=== PATIENT | male | born 1960 | race Caucasian/White ===

== ENCOUNTER 2020-08-24 13:56 | Inpatient (IN) ==
[2020-08-24] MEDS: fentaNYL citrate 100 MCG/2 ML VIAL IV PRN ×2 (14:13→16:09)
--- NOTE | 2020-08-24 15:14 | XRay Report ---
XR tibia fibula RT 2V HISTORY: 60 years-old Male fall acute right lower leg pain status post fall COMPARISON: None TECHNIQUE: 2 views of the right tibia and fibula FINDINGS: There is an acute oblique fracture of the distal diaphyseal fibula which demonstrates 8 mm lateral di splacement. Acute oblique fracture of the distal diaphyseal tibia with posterior displacement of 1.3 cm and slight apex volar angulation. Moderate soft tissue swelling of the lower leg and ankle. Mild o steoarthritis of the knee and ankle. Moderate patellofemoral osteoarthritis. IMPRESSION: Acute displaced fractures of the distal diaphyseal aspects of the tibia and fibula with m oderate soft tissue swelling. ACT 112: Negative or not required by law. The above report was generated using voice recognition software. It may contain grammatical, syntax o r spelling errors. Electronically signed by: Camron Delaney M.D. 08/24/2020 3:13 PM
--- NOTE | 2020-08-24 15:26 | Emergency Department Note ---
Impression & Plan Closed fracture of right fibula and tibia ED Provider Note NAME: CHING FALK AGE: 60 SEX: M : 1960 ARRIVES VIA: Ambulance INFORMANT: Patient, ED PROVIDER(S): Ching Patino DO CHIEF COMPLAINT: Leg pain HPI: The patient is a 60-year-old male who presented to the emergency department for an evaluation of right lower extremity pain. The patient was ambulating when he tripped and fell. He was wearing high boots. He sustained an injury to the right lower extremity. He was unable to ambulate and 911 was called. The patient arrived at the emergency department via ambulance. The patient received fentanyl prior to arrival. Pain was well controlled prior to arrival. The patient denies having any other injuries. He denies having any knee pain or back pain. He did not strike his head. He did not lose consciousness. The patient states he has pain with any movement of the right lower extremity. He denies having any numbness in the foot. He denies having any recent illnesses or fevers. ROS: See above HPI for pertinent positives & negatives. A total of 10 systems reviewed and were otherwise negative. PAST MEDICAL HISTORY: See Below PAST SURGICAL HISTORY: See Below FAMILY HISTORY: See Below SOCIAL HISTORY: See Below HOME MEDICATIONS: See Below ALLERGIES: See Below VITALS: See Below PHYSICAL EXAMINATION: GENERAL: The patient is awake and alert. He is very anxious appearing and appears to be in significant pain. EYES: The conjunctivae are clear. The pupils are round and reactive. EARS, NOSE, MOUTH AND THROAT: The nose is without any evidence of any deformity. NECK: The neck is nontender and supple. RESPIRATORY: Normal respiratory effort is noted there is no evidence of wheezing rhonchi or rales CARDIOVASCULAR: Regular rate and rhythm noted there no murmurs rubs or gallops normal S1 normal S2. GASTROINTESTINAL: The abdomen is soft. Abdomen is nontender. BACK: No midline tenderness or or step-off noted range of motion in flexion extension as well as rotation no signs of muscle spasm noted MUSCULOSKELETAL/EXTREMITIES: There is significant swelling and tenderness over the midportion of the right leg. There is no tenderness over the right foot of the right knee. Pulses are symmetric in both feet. SKIN: There is no obvious evidence of any rash. There are no petechiae, pallor or cyanosis noted. NEUROLOGIC: Patient is awake alert and oriented x3. MEDICAL DECISION MAKING: The patient is a 60-year-old male who presented to the emergency department for an evaluation after fall. The patient was treated with IV pain medication by the computer methods analyst prior to arrival. The patient was found to have a tib-fib f racture on x-ray. I discussed the patient's condition with the orthopedic physician who is covering for the patient's primary group. They did agree to evaluate the patient in the emergency department. They felt he was a candidate for surgical intervention. Further laboratory and radiographic studies were obtained for medical clearance. The patient was further treated with IV pain medication in the emergency department. On subsequent reevaluation he was feeling much better. Triage Nursing notes reviewed. Prior medical records reviewed Vital Signs: reviewed and remarkable for elevated blood pressure. Differential diagnosis: Fracture, subluxation, dislocation, contusion, ligamentous injury, ne urovascular, compartment syndrome, rhabdomyolysis, as well as other pathologies. ER treatment provided: See below Diagnostics interpreted by me: ECG: EKG was obtained in the emergency department. My interpretation is normal sinus rhythm at 64 bpm. There was no ectopy. Nonspecific T wave abnormalities were noted in the inferior leads. This was compared to a tracing from July 292019. No significant changes were noted. Cardiac Monitoring: An order was placed for continuous cardiac monitoring. The monitor shows a rate of 75 bpm with sinus rhythm. Laboratory studies: As stated above and show below. Imaging studies: See below Consultation(s): 1640: I discussed this case with Dr. Gong who is on-call for the patient's requested orthopedic group. He will evaluate the patient in the emergency department. He does request a CT of the lower extremity. Past Med/Surg History Medical History (Updated 08/24/20 @ 19:22 by Ching Patino DO) Hypertension Osteoarthritis Surgical History Hx of colonoscopy Hx of oral surgery removed extra teeth and did jaw surgery as teenager Family History Other Diabetes Social History (Updated 08/24/20 @ 17:56 by Mary Yu PA-C) Smoking Status: Never smoker Tobacco Type: Cigars and Smokeless Tobacco (Dip or Chew) Cigarettes Per Day: rare; Second Hand Exposure: No; Hx Alcohol Use: Yes Alcohol type: beer Hx Substance Use: No Preferred Language: Vietnamese Communication Ability: Effective Lean Consultant Required: No Beliefs That Will Affect Care: None Current Living Situation: Spouse Feels Safe at Home: Yes Assistive Devices: Glasses Allergies Allergies Allergy/AdvReac Type Severity Reaction Status Date / Time aspirin Allergy Unknown swelling Verified 08/24/20 14:44 Penicillins Allergy Unknown UNKNOWN Verified 08/24/20 14:44 Home Meds Home Medications Medication Instructions Recorded Confirmed losartan 100 1 tab PO QAM 07/28/19 08/24/20 mg-hydrochlorothiazide 25 mg tablet naproxen sodium 220 mg capsule 220 mg PO BID PRN 07/28/19 08/24/20 Results & Data (ED) Vital Signs Vital Signs - 24 hr 08/24/20 14:01 08/24/20 14:05 08/24/20 14:09 Temperature 36.9 C Temperature Source Oral Pulse Rate 69 69 63 Pulse Rate [Right Finger] Pulse Rate from SpO2 Sensor 61 64 Respiratory Rate 16 18 16 Respiratory Effort / Characteristics Respiratory Depth Respiratory Pattern Blood Pressure 183/84 H 183/84 H Blood Pressure [Right Arm] Blood Pressure Mean 117 117 Blood Pressure Mean [Right Arm] Blood Pressure Position [Right Arm] Pulse Oximetry 95 99 97 Oxygen Delivery Method Sepsis Recent Fever Within 48 Hours No Sepsis New/Unexplained Change in Mental Status No Sepsis Action Taken by Nursing No Action Required 08/24/20 16:00 08/24/20 17:05 08/24/20 18:11 Temperature Temperature Source Pulse Rate Pulse Rate [Right Finger] 67 73 Pulse Rate from SpO2 Sensor Respiratory Rate 18 18 Respiratory Effort / Characteristics Non-Labored Spontaneous Non-Labored Spontaneous Respiratory Depth Normal Normal Respiratory Pattern Regular Blood Pressure Blood Pressure [Right Arm] 183/84 H 142/81 H Blood Pressure Mean Blood Pressure Mean [Right Arm] 117 101 Blood Pressure Position [Right Arm] Sitting Lying Pulse Oximetry 94 96 94 Oxygen Delivery Method Room Air Room Air Room Air Sepsis Recent Fever Within 48 Hours Sepsis New/Unexplained Change in Mental Status Sepsis Action Taken by Group Home Medications Current Medication List: was personally reviewed by me Laboratory Data Attestation: I reviewed the patient's lab results. Result diagrams: 08/24/20 17:05 08/24/20 17:05 Lab Results 02/03/21 02/03/21 02/03/21 Range/Units 17:05 17:05 17:33 WBC 11.71 H (4.8-10.8) K/uL RBC 4.75 (4.7-6.1) M/uL Hgb 15.2 (14.0-18.0) g/dL Hct 43.7 (42-52) % MCV 92.0 (80-100) fL MCH 32.0 (25-34) pg MCHC 34.8 (32-36) g/dL RDW Std Deviation 42.3 (36.4-46.3) fL RDW Coeff of Ayo 12.7 (11.5-14.5) % Plt Count 198 (130-400) K/uL MPV 9.7 (7.4-10.4) fL Immature Gran % (Auto) 0.2 % Neut % (Auto) 79.9 % Lymph % (Auto) 10.4 % [place] % (Auto) 9.1 % Eos % (Auto) 0.3 % Baso % (Auto) 0.1 % Neut # (Auto) 9.37 H (1.4-6.5) K/uL Lymph # (Auto) 1.22 (1.2-3.4) K/uL [place] # (Auto) 1.06 H (0.11-0.59) K/uL Eos # (Auto) 0.03 (0-0.5) K/uL Baso # (Auto) 0.01 (0-0.2) K/uL Immature Gran # (Auto) 0.02 (0.00-0.02) K/uL Sodium 140 (136-145) mmol/L Potassium (3.5-5.1) mmol/L Chloride 108 H (98-107) mmol/L Carbon Dioxide 26 (21-32) mmol/L Anion Gap 6.0 (3-11) BUN 21 H (7-18) mg/dl Creatinine 1.05 (0.6-1.4) mg/dl Est Cr Clr Drug Dosing 102.7 ml/min Est GFR ( Amer) 87.7 Est GFR (Non-Af Amer) 75.7 BUN/Creatinine Ratio 19.8 (10-20) Glucose 95 (70-99) mg/dl Calcium 8.8 (8.5-10.1) mg/dl Total Bilirubin 0.6 (0.2-1) mg/dl AST (15-37) U/L ALT 31 (12-78) U/L Alkaline Phosphatase 79 (45-117) U/L Troponin I < 0.015 (0-0.045) ng/ml Total Protein 7.0 (6.4-8.2) gm/dl Albumin 3.8 (3.4-5.0) gm/dl Globulin 3.2 (2.5-4.0) gm/dl Albumin/Globulin Ratio 1.2 (0.9-2) Lipase 90 (73-393) U/L COVID-19 Eval [facility] SARS-CoV-2, RNA, NAAT (NEGATIVE) 08/24/20 Range/Units 17:33 WBC (4.8-10.8) K/uL RBC (4.7-6.1) M/uL Hgb (14.0-18.0) g/dL Hct (42-52) % MCV (80-100) fL MCH (25-34) pg MCHC (32-36) g/dL RDW Std Deviation (36.4-46.3) fL RDW Coeff of Ayo (11.5-14.5) % Plt Count (130-400) K/uL MPV (7.4-10.4) fL Immature Gran % (Auto) % Neut % (Auto) % Lymph % (Auto) % [place] % (Auto) % Eos % (Auto) % Baso % (Auto) % Neut # (Auto) (1.4-6.5) K/uL Lymph # (Auto) (1.2-3.4) K/uL [place] # (Auto) (0.11-0.59) K/uL Eos # (Auto) (0-0.5) K/uL Baso # (Auto) (0-0.2) K/uL Immature Gran # (Auto) (0.00-0.02) K/uL Sodium (136-145) mmol/L Potassium (3.5-5.1) mmol/L Chloride (98-107) mmol/L Carbon Dioxide (21-32) mmol/L Anion Gap (3-11) BUN (7-18) mg/dl Creatinine (0.6-1.4) mg/dl Est Cr Clr Drug Dosing ml/min Est GFR ( Amer) Est GFR (Non-Af Amer) BUN/Creatinine Ratio (10-20) Glucose (70-99) mg/dl Calcium (8.5-10.1) mg/dl Total Bilirubin (0.2-1) mg/dl AST (15-37) U/L ALT (12-78) U/L Alkaline Phosphatase (45-117) U/L Troponin I (0-0.045) ng/ml Total Protein (6.4-8.2) gm/dl Albumin (3.4-5.0) gm/dl Globulin (2.5-4.0) gm/dl Albumin/Globulin Ratio (0.9-2) Lipase (73-393) U/L COVID-19 Eval Order SARS-CoV-2, RNA, NAAT NEGATIVE (NEGATIVE) Administered Medications Fentanyl Citrate (Fentanyl Citrate 100 Mcg/2 Ml Vial) 100 mcg IV Q15M PRN PRN Reason: Pain Stop: 09/07/20 14:00 Last Admin: 08/24/20 16:09 Dose: 100 mcg Documented by: [id number] Admin: 08/24/20 14:13 Dose: 100 mcg Documented by: [id number] Imaging Data Radiologist's Impression: [facility], [phone] CT Scan Report Patient: CHING FALK Date: 08/24/20MR#: [id number]: [address] RDAcct ID:[id number]: Date: 1960[facility] Zip: [place], [place] [address]Nnr: 60Location: EDSex: MRoom/Bed:Att Phy:Diagnosis: LEG INJURY/PAINPri Phy: Yifan Reece Jr, DOService Date: 08/24/20Fa Phy:Interpreting Phy: Jose Carlos Barrera MDAdmit Phy: Ordering Phy: Ching Patino DO cc: ~ CT tib/fib RT wo con CLINICAL HISTORY: fall COMPARISON STUDY: Right tibia and fibula radiographs August 24, 2020. TECHNIQUE: Axial images of the right tibia and fibula were obtained without IV contrast. Sagittal and coronal reconstructions were viewed. Automated exposure control was utilized for the study. A dose lowering technique was utilized adhering to the principles of ALARA. FINDINGS: No proximal right tibial or fibular fracture is identified. There is no ankle mortise widening. Note is made of an acute oblique moderately displaced distal diaphyseal fracture of the right tibia. Fracture is displaced 1.8 cm. In addition, there is an acute mildly displaced distal diaphyseal fracture of the right fibula which is displaced 0.8 cm. No additional acute fractures are present. There is soft tissue swelling. Alignment of the right knee is anatomic. There are no suspicious osseous lesions. IMPRESSION: Acute displaced distal diaphyseal fractures of the right tibia and fibula, as described above. ACT 112: Negative or not required by law. Electronically signed by: Jose Carlos Barrera M.D. 08/24/2020 5:57 PM Dictated: 08/24/201751Transcribed: 08/24/201751 [facility], [phone] XRay Report Patient: NANCIEHUIROWENACHING [facility] Date: 08/24/20MR#: [id number]: [address] RDAcct ID:[id number]: Date: 1960[facility] Zip: [place], [place] [address]Dwp: 60Location: EDSex: MRoom/Bed:Att Phy:Diagnosis: LEG INJURY/PAINPri Phy: Yifan Reece Jr, DOService Date: 08/24/20Fa Phy:Interpreting Phy: Jose Carlos Barrera MDAdmit Phy: Ordering Phy: Ching Patino DO cc: ~ XR chest 1V portable CLINICAL HISTORY: Chest Pain COMPARISON STUDY: Chest radiograph July 29, 2019. FINDINGS: Lung volumes are normal. Lungs are clear. There is no pneumothorax or pleural effusion. Cardiac size is stable. Mediastinal contours are normal. There is no evidence for pulmonary edema. IMPRESSION: No acute cardiopulmonary findings. ACT 112: Negative or not required by law. Electronically signed by: Jose Carlos Barrera M.D. 08/24/2020 5:20 PM Dictated: 08/24/201718Transcribed: 08/24/201718 Patient: DILEEPCHING [facility] Date: 08/24/20MR#: [id number]: [address] RDAcct ID:[id number]: Date: 1960[facility] Zip: [place], [place] [address]Jee: 60Location: EDSex: MRoom/Bed:Att Phy:Diagnosis: LEG INJURY/PAINPri Phy: Yifan Reece Jr, DOService Date: 08/24/20Fam Phy:Interpreting Phy: Arnel DelaneyAdmit Phy: Ordering Phy: Ching Patino DO cc: ~ XR tibia fibula RT 2V HISTORY: 60 years-old Male fall acute right lower leg pain status post fall COMPARISON: None TECHNIQUE: 2 views of the right tibia and fibula FINDINGS: There is an acute oblique fracture of the distal diaphyseal fibula which demonstrates 8 mm lateral displacement. Acute oblique fracture of the distal diaphyseal tibia with posterior displacement of 1.3 cm and slight apex volar angulation. Moderate soft tissue swelling of the lower leg and ankle. Mild osteoarthritis of the knee and ankle. Moderate patellofemoral osteoarthritis. IMPRESSION: Acute displaced fractures of the distal diaphyseal aspects of the tibia and fibula with moderate soft tissue swelling. ACT 112: Negative or not required by law. The above report was generated using voice recognition software. It may contain grammatical, syntax or spelling errors. Electronically signed by: Camron Delaney M.D. 08/24/2020 3:13 PM Dictated: 08/24/201510Transcribed: 08/24/201510 Discharge Plan Visit Data Chief Complaint: Leg Injury/Pain ED Provider: Ching Patino Discharge Problem: Closed fracture of right fibula and tibia Forms Stand Alone Forms: [employer] Prescriptions Prescriptions: No Action losartan-hydrochlorothiazide 100-25 mg tablet 1 tab PO QAM RF: 0 naproxen sodium [Aleve] 220 mg capsule 220 mg PO BID PRN (Reason: Pain) RF: 0 Referrals Referrals: Yifan Reece Jr, DO [Primary Care Provider] - Discharge Problem: Closed fracture of right fibula and tibia Qualifiers: Encounter type: initial encounter Qualified Code(s): S82.201A - Unspecified fracture of shaft of right tibia, initial encounter for closed fracture
[2020-08-24 17:14] LABS: Basophils # (auto) 0.01 K/uL (0-0.2); Basophils % (auto) 0.1 %; Eosinophils # (auto) 0.03 K/uL (0-0.5); Eosinophils % (auto) 0.3 %; Hematocrit (blood only) 43.7 % (42-52); Hemoglobin 15.2 g/dL (14.0-18.0); Immature Granulocytes # (auto) 0.02 K/uL (0.00-0.02); Immature Granulocytes % (auto) 0.2 %; Lymphocytes # (auto) 1.22 K/uL (1.2-3.4); Lymphocytes % (auto) 10.4 %; Mean Corpuscular Hgb Conc 34.8 g/dL (32-36); Mean Platelet Volume 9.7 fL (7.4-10.4); Monocytes # (auto) 1.06 K/uL (0.11-0.59); Monocytes % (auto) 9.1 %; Neutrophils # (auto) 9.37 K/uL (1.4-6.5); Neutrophils % (auto) 79.9 %; Platelet Count 198 K/uL (130-400); RDW Coefficient of Variation 12.7 % (11.5-14.5); RDW Standard Deviation 42.3 fL (36.4-46.3); Red Blood Count 4.75 M/uL (4.7-6.1); White Blood Count 11.71 K/uL (4.8-10.8)
--- NOTE | 2020-08-24 17:21 | XRay Report ---
XR chest 1V portable CLINICAL HISTORY: Chest Pain COMPARISON STUDY: Chest radiograph July 29, 2019. FINDINGS: Lung volumes are normal. Lungs are clear. There is no pneumothorax or pleural effusion. Car diac size is stable. Mediastinal contours are normal. There is no evidence for pulmonary edema. IMPRESSION: No acute cardiopulmonary findings. ACT 112: Negative or not required by law. Electronically signed by: Jose Carlos Barrera M.D. 08/24/2020 5:20 PM
[2020-08-24 17:40] LABS: Alanine Aminotransferase 31 U/L (12-78); Albumin Globulin Ratio 1.2 (0.9-2); Albumin Level 3.8 gm/dl (3.4-5.0); Alkaline Phosphatase 79 U/L (45-117); BUN Creatinine Ratio 19.8 (10-20); Bilirubin,Total 0.6 mg/dl (0.2-1); Blood Urea Nitrogen 21 mg/dl (7-18); Calcium 8.8 mg/dl (8.5-10.1); Carbon Dioxide 26 mmol/L (21-32); Chloride 108 mmol/L (98-107); Creatinine Clr Calc Pharmacy 102.7 ml/min; Est GFR (African American) 87.7; Est GFR (Non-African American) 75.7; Globulin 3.2 gm/dl (2.5-4.0); Glucose 95 mg/dl (70-99); Lipase 90 U/L (73-393); Sodium 140 mmol/L (136-145); Troponin I < 0.015 ng/ml (0-0.045)
--- NOTE | 2020-08-24 17:58 | CT Scan Report ---
CT tib/fib RT wo con CLINICAL HISTORY: fall COMPARISON STUDY: Right tibia and fibula radiographs August 24, 2020. TECHNIQUE: Axial images of the right tibia and fibula were obtained without IV contrast. Sagittal and coronal reconstructions were viewed. Automated exposure control was utilized for the study. A dose lowering technique was utilized adhering to the principles of ALARA. FINDINGS: No proximal right tibial or fibular fracture is identified. There is no ankle mortise widen ing. Note is made of an acute oblique moderately displaced distal diaphyseal fracture of the right ti hemant. Fracture is displaced 1.8 cm. In addition, there is an acute mildly displaced distal diaphyseal fracture of the right fibula which is displaced 0.8 cm. No additional acute fractures are present. Th ere is soft tissue swelling. Alignment of the right knee is anatomic. There are no suspicious osseous lesions. IMPRESSION: Acute displaced distal diaphyseal fractures of the right tibia and fibula, as described above. ACT 112: Negative or not required by law. Electronically signed by: Jose Carlos Barrera M.D. 08/24/2020 5:57 PM
--- NOTE | 2020-08-24 18:03 | History & Physical Report ---
Date of Service August 24, 2020 Assessment & Plan (1) Tibia/fibula fracture: Patient has a closed right distal tib-fib fracture. He will be admitted for care under Dr. Suárez service today. Dr. Harding will over take care tomorrow. We will make him n.p.o. after midnight in preparation for surgery tomorrow. He will be given his regular home medications if warranted. He has undergone preoperative CBC, BMP and Covid testing. He is also had an EKG, chest x-ray. CT scan of his right tibia has also been completed. He has been splinted and recommended ice and elevation through the night of his right lower extremity. We will do frequent neurovascular checks to eval for compartment sy ndrome. He needs to be nonweightbearing and bedrest until surgical intervention is decided upon. Patient understands and agrees with the plan. All questions were answered. Informed consent will be obtained by Dr. Harding's office or one of his partners tomorrow. I, Dr. Suárez, saw and examined the patient with my PA and discussed the management with my PA. I reviewed my PAs note and agree with the documented findings and the plan of care I developed. Present on Admission?: Yes History of Present Illness Primary Care Provider: Yifan Reece Jr, DO Patient is a 60 year old male who presented to the ED today with complaints of right leg pain after a fall over a mower blade in his garage. He works as a Repairer And Checker for [employer] He states about a week ago his twisted his leg and ankle, and was limping on it for the past week. After 3-4 days it was feeling better, then he bumped it on an umbrella stand again and developed a "snap". He thought the snap was coming from his boot a couple of times to the point where he actually took off his boot to reapply it. He states the snapping was audible and painful. Today when he fell he had immediate pain and inability to weight bear. He states that after the fall when he looked down he saw his ankle dangling. He denies any other injuries. He denies any loss of consciousness at the time of his fall. He states prior to this he did not have any pain in his right leg. He does have history of having a right knee arthroscopy and partial meniscectomy by Dr. Harding last July. He states that he recovered well from that and had no longstanding issues. He was able to work over the last week even with his pain and limping. Now he states he can't do anything. He had x-rays done in the ED which showed a both bones fracture of his distal tibia and fibula. He was splinted and we were asked to admit for care by Dr. Harding or one of his partners tomorrow. He denies any numbness or tingling. He denies any other injuries. He denies any prior injuries up until a week ago. He states that he did not have any break in the skin of his right lower extremity at the time of this fall. Allergies Allergy/AdvReac Type Severity Reaction Status Date / Time aspirin Allergy Unknown swelling Verified 08/24/20 14:44 Penicillins Allergy Unknown UNKNOWN Verified 08/24/20 14:44 Home Medications Medication Instructions Recorded Confirmed Type losartan 100 1 tab PO QAM 07/28/19 08/24/20 History mg-hydrochlorothiazide 25 mg tablet naproxen sodium 220 mg capsule 220 mg PO BID PRN 07/28/19 08/24/20 History Past Med/Surg History Medical History (Updated 08/24/20 @ 19:22 by Saul Patino DO) Hypertension Osteoarthritis Surgical History Hx of colonoscopy Hx of oral surgery removed extra teeth and did jaw surgery as teenager Family History Other Diabetes Social History (Updated 08/24/20 @ 17:56 by Mary Yu PA-C) Smoking Status: Current some day smoker Tobacco Type: Cigars and Smokeless Tobacco (Dip or Chew) Cigarettes Per Day: rare; Second Hand Exposure: No; Do You Dip or Chew Tobacco: Yes (1 can/week); Hx Alcohol Use: Yes Alcohol type: beer Hx Substance Use: No Preferred Language: Urugu[place] Communication Ability: Effective Green Building Design Specialist Required: No Beliefs That Will Affect Care: None Current Living Situation: Spouse Feels Safe at Home: Yes Assistive Devices: Glasses Review of Systems Review of Systems: All systems reviewed & are unremarkable except as noted in HPI & below Physical Exam Constitutional: WD/WN, vitals as above average body habitus and healthy appearing; no acute distress and no altered mental status Eyes: PERRL, conjunctivae normal, anicteric sclerae ENMT: external ear and nose normal, oropharynx normal Neck: trachea midline, no thyromegaly normal visual inspection Respiratory: normal respiratory effort, lungs clear to auscultation Auscultation: no crackles, no rales, no rhonchi and no wheezes Cardiovascular: RRR, no murmur, no edema Heart Sounds: normal S1 and normal S2 Extremities: normal capillary refill; no calf tenderness, no pedal edema and no edema Gastrointestinal (Abdomen): normal bowel sounds, soft, nontender, no hepatosplenomegaly Musculoskeletal: Patient seen and evaluated with Dr. Suárez. Right lower extremity is in a posterior and sugar tong splint. He moves his toes well with no significant distal edema. Capillary refill is brisk. Toes are nontender with palpation. Dorsalis pedis pulses 1+. Nontender throughout the toes or forefoot. He tolerates lifting his leg today. He tolerates gentle knee range of motion. He has no knee effusion. No skin abrasions noted. Although did not check under splint. Please see ER physician's note for further details regarding findings prior to splinting. Skin: no rashes, warm and dry Psychiatric: A+Ox3, euthymic affect Orientation: cooperative Results & Data Results & Data ([facility]) Vital Signs (Past 12 Hours) Vital Signs Temp Pulse Pulse Resp BP BP Pulse Ox 08/24/20 17:05 96 08/24/20 16:00 67 18 183/84 H 94 08/24/20 14:09 63 16 97 08/24/20 14:05 36.9 C 69 18 183/84 H 99 08/24/20 14:01 69 16 183/84 H 95 Laboratory Results 08/24/20 08/24/20 08/24/20 Range/Units 17:33 17:33 17:05 WBC (4.8-10.8) K/uL RBC (4.7-6.1) M/uL Hgb (14.0-18.0) g/dL Hct (42-52) % MCV (80-100) fL MCH (25-34) pg MCHC (32-36) g/dL RDW Std Deviation (36.4-46.3) fL RDW Coeff of Ayo (11.5-14.5) % Plt Count (130-400) K/uL MPV (7.4-10.4) fL Immature Gran % (Auto) % Neut % (Auto) % Lymph % (Auto) % Love % (Auto) % Eos % (Auto) % Baso % (Auto) % Neut # (Auto) (1.4-6.5) K/uL Lymph # (Auto) (1.2-3.4) K/uL Love # (Auto) (0.11-0.59) K/uL Eos # (Auto) (0-0.5) K/uL Baso # (Auto) (0-0.2) K/uL Immature Gran # (Auto) (0.00-0.02) K/uL Sodium 140 (136-145) mmol/L Potassium (3.5-5.1) mmol/L Chloride 108 H (98-107) mmol/L Carbon Dioxide 26 (21-32) mmol/L Anion Gap 6.0 (3-11) BUN 21 H (7-18) mg/dl Creatinine 1.05 (0.6-1.4) mg/dl Est Cr Clr Drug Dosing 102.7 ml/min Est GFR ( Amer) 87.7 Est GFR (Non-Af Amer) 75.7 BUN/Creatinine Ratio 19.8 (10-20) Glucose 95 (70-99) mg/dl Calcium 8.8 (8.5-10.1) mg/dl Total Bilirubin 0.6 (0.2-1) mg/dl AST (15-37) U/L ALT 31 (12-78) U/L Alkaline Phosphatase 79 (45-117) U/L Troponin I < 0.015 (0-0.045) ng/ml Total Protein 7.0 (6.4-8.2) gm/dl Albumin 3.8 (3.4-5.0) gm/dl Globulin 3.2 (2.5-4.0) gm/dl Albumin/Globulin Ratio 1.2 (0.9-2) Lipase 90 (73-393) U/L COVID-19 Eval [facility] SARS-CoV-2, RNA, NAAT Pending 08/24/20 Range/Units 17:05 WBC 11.71 H (4.8-10.8) K/uL RBC 4.75 (4.7-6.1) M/uL Hgb 15.2 (14.0-18.0) g/dL Hct 43.7 (42-52) % MCV 92.0 (80-100) fL MCH 32.0 (25-34) pg MCHC 34.8 (32-36) g/dL RDW Std Deviation 42.3 (36.4-46.3) fL RDW Coeff of Ayo 12.7 (11.5-14.5) % Plt Count 198 (130-400) K/uL MPV 9.7 (7.4-10.4) fL Immature Gran % (Auto) 0.2 % Neut % (Auto) 79.9 % Lymph % (Auto) 10.4 % Love % (Auto) 9.1 % Eos % (Auto) 0.3 % Baso % (Auto) 0.1 % Neut # (Auto) 9.37 H (1.4-6.5) K/uL Lymph # (Auto) 1.22 (1.2-3.4) K/uL Love # (Auto) 1.06 H (0.11-0.59) K/uL Eos # (Auto) 0.03 (0-0.5) K/uL Baso # (Auto) 0.01 (0-0.2) K/uL Immature Gran # (Auto) 0.02 (0.00-0.02) K/uL Sodium (136-145) mmol/L Potassium (3.5-5.1) mmol/L Chloride (98-107) mmol/L Carbon Dioxide (21-32) mmol/L Anion Gap (3-11) BUN (7-18) mg/dl Creatinine (0.6-1.4) mg/dl Est Cr Clr Drug Dosing ml/min Est GFR ( Amer) Est GFR (Non-Af Amer) BUN/Creatinine Ratio (10-20) Glucose (70-99) mg/dl Calcium (8.5-10.1) mg/dl Total Bilirubin (0.2-1) mg/dl AST (15-37) U/L ALT (12-78) U/L Alkaline Phosphatase (45-117) U/L Troponin I (0-0.045) ng/ml Total Protein (6.4-8.2) gm/dl Albumin (3.4-5.0) gm/dl Globulin (2.5-4.0) gm/dl Albumin/Globulin Ratio (0.9-2) Lipase (73-393) U/L COVID-19 Eval Order SARS-CoV-2, RNA, NAAT Covid testing pending Diagnostic Findings XR chest 1V portable CLINICAL HISTORY: Chest Pain COMPARISON STUDY: Chest radiograph July 29, 2019. FINDINGS: Lung volumes are normal. Lungs are clear. There is no pneumothorax or pleural effusion. Cardiac size is stable. Mediastinal contours are normal. There is no evidence for pulmonary edema. IMPRESSION: No acute cardiopulmonary findings. XR tibia fibula RT 2V HISTORY: 60 years-old Male fall acute right lower leg pain status post fall COMPARISON: None TECHNIQUE: 2 views of the right tibia and fibula FINDINGS: There is an acute oblique fracture of the distal diaphyseal fibula which demonstrates 8 mm lateral displacement. Acute oblique fracture of the distal diaphyseal tibia with posterior displacement of 1.3 cm and slight apex volar angulation. Moderate soft tissue swelling of the lower leg and ankle. Mild osteoarthritis of the knee and ankle. Moderate patellofemoral osteoarthritis. IMPRESSION: Acute displaced fractures of the distal diaphyseal aspects of the tibia and fibula with moderate soft tissue swelling. CT tib/fib RT wo con CLINICAL HISTORY: fall COMPARISON STUDY: Right tibia and fibula radiographs August 24, 2020. TECHNIQUE: Axial images of the right tibia and fibula were obtained without IV contrast. Sagittal and coronal reconstructions were viewed. Automated exposure control was utilized for the study. A dose lowering technique was utilized adhering to the principles of ALARA. FINDINGS: No proximal right tibial or fibular fracture is identified. There is no ankle mortise widening. Note is made of an acute oblique moderately displaced distal diaphyseal fracture of the right tibia. Fracture is displaced 1.8 cm. In addition, there is an acute mildly displaced distal diaphyseal fracture of the right fibula which is displaced 0.8 cm. No additional acute fractures are present. There is soft tissue swelling. Alignment of the right knee is anatomic. There are no suspicious osseous lesions. IMPRESSION: Acute displaced distal diaphyseal fractures of the right tibia and fibula, as described above.
[2020-08-24] MEDS ORDERED: METOCLOPRAMIDE HCL INJ 5 MG/ML 2 ML VIAL IV PRN (20:04)
[2020-08-24] MEDS ORDERED: oxyCODONE/ACETAMINOPHEN 5mg/325mg TAB PO PRN (20:04)
[2020-08-24] MEDS ORDERED: diphenhydrAMINE 50 MG/ML VIAL IV PRN (20:04)
[2020-08-24] MEDS ORDERED: ONDANSETRON INJ 2 MG/ML 2 ML VIAL IV PRN (20:04)
[2020-08-24] MEDS ORDERED: HYDROmorphone INJ 0.5 MG/0.5 ML SYR ONE (20:36)
[2020-08-24] MEDS: D5W AND 1/2NSS 1,000 ML IV SCH (20:39)
[2020-08-25] MEDS: HYDROmorphone INJ 0.5 MG/0.5 ML SYR IV PRN ×2 (06:19→11:00)
[2020-08-25] MEDS: LOSARTAN/HCTZ 50/12.5MG TAB PO SCH (08:27)
[2020-08-25] MEDS: D5W AND 1/2NSS 1,000 ML IV SCH ×2 (08:27→18:50)
--- NOTE | 2020-08-25 08:33 | Anesthesiology Consultation ---
Date of Service August 25, 2020 Assessment & Plan (1) Encounter for pre-operative examination: Chart Review Chart Review: entry level sales consultant initiated History Surgery Operation Date: 08/25/20 09:35 Proposed Procedures p Right Distal Tibia Fracture Open Reduction Internal Fixation - See Harding MD Height/Weight Height: 6 ft 2 in Weight: 120.8 kg Allergies Allergy/AdvReac Type Severity Reaction Status Date / Time aspirin Allergy Unknown swelling Verified 08/24/20 14:44 Penicillins Allergy Unknown UNKNOWN Verified 08/24/20 14:44 Medications Home Medications Medication Instructions Recorded Confirmed Last Taken losartan 100 1 tab PO QAM 07/28/19 08/24/20 08/11/19 16:00 mg-hydrochlorothiazide 25 mg tablet naproxen sodium 220 mg capsule 220 mg PO BID PRN 07/28/19 08/24/20 08/05/19 16:00 Active Medications Generic Name Dose Route Start Last Admin Trade Name Freq PRN Reason Stop Dose Admin HCTZ/Losartan Potassium 1 tab 08/25/20 09:00 08/25/20 08:27 Losartan/Hctz 50/12.5mg Tab PO 09/24/20 08:59 1 tab QAM MONIQUE Administration Hydromorphone HCl 0.5 mg 08/24/20 20:04 08/25/20 06:19 Hydromorphone Inj 0.5 Mg/0.5 Ml Syr IV 09/07/20 20:03 0.5 mg Q3H PRN Administration Pain Dextrose/Sodium Chloride 1,000 mls @ 75 mls/hr 08/24/20 20:04 08/25/20 08:27 D5w And 1/2nss IV 09/23/20 20:03 75 mls/hr .[id number] MONIQUE Administration Oxycodone/Acetaminophen 1 - 2 tab 08/24/20 20:04 08/24/20 23:31 Oxycodone/Acetaminophen 5mg/325mg Tab PO 09/07/20 20:03 2 tab Q4H PRN Administration Pain NPO Date Last Intake of Fluids: 08/24/20 Time Last Intake of Fluids: 23:59 Date Last Intake of Solids: 08/24/20 Time Last Intake of Solids: 23:59 Past Medical History Medical History Hypertension Osteoarthritis Past Family History Family History Other Diabetes Past Surgical History Surgical History Hx of colonoscopy Hx of oral surgery removed extra teeth and did jaw surgery as teenager Social History Smoking Status: Current some day smoker tobacco type: cigars and smokeless tobacco Smoking cigarettes per day: rare Do You Dip or Chew Tobacco: Yes (1 can/week) Hx Alcohol Use: Yes Alcohol type: beer alcohol intake frequency: 3 or more drinks per day Alcohol Intake Frequency Comment: 5-6 beers/night Hx Substance Use: No substance use type: does not use Physical Exam Vital Signs Last Vital Signs Temp 98.2 F 08/25/20 07:40 Pulse 53 L 08/25/20 07:40 Resp 16 08/25/20 07:40 BP 155/82 H 08/25/20 07:40 Pulse Ox 96 08/25/20 07:40 Testing Laboratory Results 08/24/20 17:05 08/24/20 17:05 Blood Type A Positive 08/25/20 07:07 Antibody Screen NEGATIVE 08/25/20 07:07 Electrocardiogram Date: 08/24/20 Normal sinus rhythm, rate 64 bpm Normal ECG When compared with ECG of 29-JUL-2019 12:17, Nonspecific T wave abnormality has replaced inverted T waves in Inferior leads T wave amplitude has decreased in Lateral leads Chest X-Ray Date: 08/24/20 Findings: + NAD
--- NOTE | 2020-08-25 12:39 | Orthopedic Progress Note ---
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 I discussed that we recommend surgery for this injury. The surgery will be right tibia and fibula open reduction internal fixation. I discussed the techniques involved as well as the use of hardware. We discussed the risks of the surgery include not limited to infection, neurovascular injury, symptomatic hardware, need for repeat or revision procedures, nonunion, malunion, pain syndromes, blood clots, and complications related to anesthesia. He asked appropriate questions, demonstrated understanding, elected proceed with surgery. Informed consent was obtained at the bedside today. He is on-call to the OR for an add-on case this afternoon. Expect 1 to 3-day hospital stay following surgery. Subjective Mr. Matthew was admitted overnight by the [facility] team due to a right distal tibia and fibula fracture that [facility] had agreed to fix. I saw him at the bedside. He reports pain is tolerable. He confirmed his history that he fell and hit his leg on the blade of a plow resulting in twisting and impact injury causing immediate deformity. Denies any numbness or tingling. Denies any previous injuries or surgeries to that leg. He understan ds that he probably needs surgery for this. Review of Systems All systems reviewed & are unremarkable except as noted in HPI & below. Physical Exam Right lower extremity: The splint is clean dry and intact and appropriately fit. I did open the front of the splint to evaluate the skin. He did have positive skin wrinkles and supple tissues for surgery today. He is nontender more proximally by the knee. He can actively range his toes and had sensation that was intact to light touch. He had 2+ DP pulse. I reposition his leg in a better elevated angle. Constitutional WD/WN, vitals as above no acute distress and not intoxicated appearing Respiratory normal respiratory effort; no labored breathing Cardiovascular Extremities: normal capillary refill Results & Data Results & Data Laboratory Results . Diagnostic Findings Radiographs and CT scan reviewed of the right lower extremity. He has a oblique Henry oriented fracture at the distal diaphysis of the tibia and more proximally on the fibula. There is minimal comminution. Its displacement and location indicates for surgical fixation. PG Care Time/CCT Total # of Minutes Spent Total Time Spent with Patient: Total time spent is greater than 50% in coordination of care (as documented) at patient's floor/unit and/or counseling patient: Coding Level of Care Code 92291 Post Operative Follow-Up Diagnoses Closed fracture of right fibula and tibia S82.201A; S82.401A Encounter type: initial encounter (1) Closed fracture of right fibula and tibia Encounter type: initial encounter Qualified Code(s): S82.201A - Unspecified fracture of shaft of right tibia, initial encounter for closed fracture; S82.401A - Unspecified fracture of shaft of right fibula, initial encounter for closed fracture
[2020-08-25] MEDS ORDERED: ONDANSETRON INJ 2 MG/ML 2 ML VIAL ONE (13:09)
[2020-08-25] MEDS ORDERED: LIDOCAINE HCL 2% 2 ML VIAL/AMP(20MG/ML) INFIL ONE (13:09)
[2020-08-25] MEDS ORDERED: fentaNYL citrate 100 MCG/2 ML VIAL ONE ×2 (13:09→16:28)
[2020-08-25] MEDS ORDERED: DEXAMETHASONE SOD INJ 4 MG/ML VIAL ONE (13:09)
[2020-08-25] MEDS ORDERED: MIDAZOLAM HCL 1 MG/ML 2ML VIAL ONE (13:09)
[2020-08-25] MEDS ORDERED: PROPOFOL IV EMULSION 10 MG/ML 20 ML VIAL IV ONE (13:09)
[2020-08-25] MEDS ORDERED: ePHEDrine sulfate 50 MG/ML AMP IV PRN (13:31)
[2020-08-25] MEDS ORDERED: ONDANSETRON INJ 2 MG/ML 2 ML VIAL IV PRN (13:31)
[2020-08-25] MEDS ORDERED: fentaNYL citrate 100 MCG/2 ML VIAL IV PRN (13:31)
[2020-08-25] MEDS ORDERED: ATROPINE SULFATE 0.1 MG/ML 10ML SYR IV PRN (13:31)
[2020-08-25] MEDS ORDERED: ROPIVACAINE 0.5% 5 MG/ML 30 ML VIAL ONE (13:32)
[2020-08-25] MEDS ORDERED: BUPIVACAINE/EPINEPHRINE 0.5% MPF 1:200,000 30 ML VIAL ONE (13:48)
[2020-08-25] MEDS ORDERED: ePHEDrine sulfate 50 MG/ML SYR ONE (14:46)
--- NOTE | 2020-08-25 17:06 | Fluoroscopy Report ---
FL ankle RT min 3V RTN CLINICAL HISTORY: RT ORIF DISTAL TIBIA FX COMPARISON STUDY: Right tibia/fibula 08/24/2020. FLUOROSCOPY TIME: 59 seconds. FINDINGS: 9 fluoroscopic spot images of the right lower leg were submitted. There is a cortical plate transfixed with screws bridging the distal tibial fracture. The hardware appears intact. Alignment i s near-anatomic. There is a slightly displaced fibular fracture. IMPRESSION: Fluoroscopy provided for internal fixation of a distal tibial fracture. ACT 112: Negative or not required by law. Electronically signed by: Brett Patel M.D. 08/25/2020 5:05 PM
--- NOTE | 2020-08-25 17:43 | Operative Report ---
PG Post Operative Report Pre & Post Diagnosis Operation Date: 08/25/20 09:35 Pre-Op Diagnosis: Closed Fracture of Right Tibia and Fibula Post-Op Diagnosis: Closed Fracture of Right Tibia and Fibula I identified the patient and participated in the time-out.: Yes Procedure Operation Date: 08/25/20 09:35 Actual Procedures p Right Distal Tibia Fracture Open Reduction Internal Fixation(Right) - See Harding MD Surgeon See Harding MD Assignment Desk Editor Jakob Mead PA-C Estimated Blood Loss 50 Findings See Below Distal diaphyseal fibular fracture the reduced well with a single bone forcep and 3 interfragmentary 3.5 mm cortical screws. Final construct included the Synthes distal tibia medial 3.5 mm locking compression plate, placed percutaneously. All Synthes implants. 14hole 3.5 mm locking medial distal tibia plate. 3.5 cortex screw x2. Seven 3.5 locking screws. Specimens none Anesthesia Type General Complications none Disposition Accompanied Patient To Recovery: No Disposition: Recovery Room Indications 60-year-old male sustained a twisting and impact injury to his distal leg yesterday, resulting immediate deformity and inability to ambulate. He is brought to the emergency room. Work-up revealed a distal tibia and fibula fracture. He is admitted to the hospital for elevation and pain control. I evaluated him this morning and recommended open reduction total fixation of his tibia and possibly the fibula depending on stability. We discussed risk benefits in detail as outlined in my preoperative note. Informed consent was obtained at the bedside. Description of Procedure On the day of surgery, the patient was greeted in the preoperative holding area. The informed consent was reviewed and confirmed by myself and the patient. The patient identified the surgical site and was marked by me. The patient was then turned over to anesthesia. Anesthesia performed a regional anesthetic block with excellent effect. Patient was then taken to the operating place upon the OR table and anesthesia was induced. The airway was secured. He was positioned for right leg surgery using a bone foam leg ramp. A 3 blanket bump was placed under the ipsilateral hip. A nonsterile tourniquet is placed on his thigh and the right lower extremity then prepped and draped using the usual fashion for fracture surgery. Surgical timeout was called by the circulating nurse and verified by all present. Antibiotics have been infused equipment was available and functional. We initiated procedure by sizing the plates that were available. The original plan is for an anterior lateral plate. I did not feel that there longus plate will be adequate length proximally, beyond the proximal spike. The medial plate seem to fit well and would work in a good buttress fashion distally. A 6 cm incision was planned over the middle portion of the long oblique fracture pattern so that I can clamp it and reduce it. The Esmarch bandage was used to exsanguinate the extremity and the tourniquet was flighted to 250 mmHg. Total tourniquet time was 2 hours. Sharp dissection was carried down through the anterior approach to the tibia. Bovie electrocautery was used. Minimal skin flaps were elevated preserve the tissues. The ecchymotic periosteum was encountered and incised sharply to reveal the fracture margin anteriorly near the crest. Is able to elevate the periosteum en bloc laterally to expose the fracture line and allow a lobster claw style bone reduction forcep to enveloped the fracture. There was minimal comminution I could directly visualize the reduction. Reduction was validated on fluoroscopy. Given the trajectory I thought we had adequate access for anterior row medial to distal lateral interfragmentary screws. This was performed with 3.5 cortical screws with excellent purchase. The fibula also seem to line up well and not require any open reduction. We then sized the plate once again by holding against skin for fluoroscopy. I then made a 4 cm longitudinal incision near the medial malleolus. The saphenous nerve and vein was identified and protected and moved anteriorly. Electr ocautery was used to elevate periosteum slightly. The medial plate was then loaded on its targeter and slid up in an extraperiosteal position on the medial cortex of the tibia. He had adequate soft tissue coverage and did not seem to compromise this whatsoever. The targeting arm was then used to place a pin proximally once the plate was positioned optimally under fluoroscopy. We then placed a cortical screw just adjacent to the proximal aspect of the fracture to suck the plate down to bone. I then moved distally and placed another cortical screw to position the plate firmly against bone. We then placed multiple locking screws sutures using the targeter about the distal tibia. 4 locking screws in total were used with protection for the profound and syndesmosis area. I then moved proximally and placed an additional locking screw at the pin site and then additional 2 more locking screws to finish our construct. The proximal screws were placed percutaneously using the targeter. Screw length, position and reduction was all validated on multiple planes of fluoroscopy as we performed the procedure. At conclusion the tibial fixation the fibula appeared to line up well. There was a lot of comminution and did not feel it was worth the dissection to stabilize this fracture separately. The syndesmosis was then evaluated under stress fluoroscopy and appeared to be stable. Therefore, I did not fix the fibula to spare extra incisions in this diabetic patient. The wounds were then thoroughly irrigated with normal saline. The periosteal layer through the anterior incision was approximated using 0 Vicryl suture. The skin over that incision was closed with 2-0 Vicryl suture in the deep dermal layer. 3-0 Vicryl was used in our medial incision and as well as our percutaneo us incisions. Final skin closure consisted of 2-0 nylon suture. Leg was then cleansed and dressed with sterile Xeroform, sterile gauze, ABDs and contained by web roll. The lower extremities then placed in a standard L and U ankle trauma splint with abundant padding. Patient was then turned over anesthesia. He awoke from anesthesia without complication was transferred to the PACU in stable condition after successful extubation. Disposition: He will remain an inpatient for initial PT/OT evaluation and pain control. He will be on Lovenox daily DVT prophylaxis while inpatient and likely transition to continue use of Lovenox at home for 6 weeks, given his aspirin allergy. Will be nonweightbearing for 6 weeks. Plan to transition to a high tide controlled active motion ankle boot initial postop in 10 to 14 days. Physician orthotics prosthetics assistant attestation: Jakob Mead PA-C was present and scrubbed for the duration of the case. He was essential to prepping/draping, patient positioning, retraction, and assistance with wound closure. In particular, he was essential to skilled reduction maneuvers. I attest to the content of the Intraoperative Record and any orders documented therein. Any exceptions are noted below.
--- NOTE | 2020-08-25 18:19 | XRay Report ---
XR tibia fibula RT 2V CLINICAL HISTORY: Post-op. Right tibia/fibular fractures. COMPARISON STUDY: Right lower leg 08/24/2020. FINDINGS: Status post internal fixation of the mid to distal right tibial fracture with a cortical pl ate and screws. The hardware appears intact. Alignment is anatomic. Mildly displaced oblique fracture within the distal shaft of the right fibula is again noted. This also demonstrates improved anatomic alignment with up to 2 mm of lateral displacement remaining. Overlying splint material obscures fine bony detail. IMPRESSION: Postoperative changes consistent with internal fixation of the distal right tibial fract ure. The hardware appears intact. ACT 112: Negative or not required by law. Electronically signed by: Brett Patel M.D. 08/25/2020 6:18 PM
[2020-08-25] MEDS ORDERED: ACETAMINOPHEN 500 MG TAB PO PRN (18:27)
--- NOTE | 2020-08-25 18:35 | Anesthesiology Progress Note ---
Date of Service August 25, 2020 Anesthesia Post Procedure Vital Signs Vital Signs: Temp Pulse Pulse Pulse Resp BP BP 08/25/20 18:15 36.3 C L 78 16 143/86 H 08/25/20 18:05 79 19 136/80 08/25/20 17:55 72 24 100/65 08/25/20 17:45 75 14 118/74 08/25/20 17:35 36.4 C L 89 18 125/61 08/25/20 13:40 36.9 C 65 18 150/89 H 08/25/20 07:40 36.8 C 53 L 16 155/82 H 08/24/20 23:20 37.2 C 69 16 137/70 08/24/20 19:30 36.4 C L 71 20 164/85 H 08/24/20 19:20 62 15 144/75 H Pulse Ox 08/25/20 18:15 97 08/25/20 18:05 95 08/25/20 17:55 95 08/25/20 17:45 97 08/25/20 17:35 97 08/25/20 13:40 96 08/25/20 07:40 96 08/24/20 23:20 95 08/24/20 19:30 97 08/24/20 19:20 94 Transfer of Care Handoff Completed per policy Notes Mental Status: alert / awake / arousable Patient Amnestic to Procedure: Yes Nausea / Vomiting: adequately controlled Pain: adequately controlled Airway Patency, RR, SpO2: stable & adequate BP & HR: stable & adequate Hydration State: stable & adequate Anesthetic Complications: no major complications apparent
--- NOTE | 2020-08-25 21:18 | Electrocardiogram Report ---
Test Reason : Blood Pressure : / mmHG Vent. Rate : 064 BPM Atrial Rate : 064 BPM P-R Int : 148 ms QRS Dur : 096 ms QT Int : 444 ms P-R-T Axes : 063 000 036 degrees QTc Int : 458 ms Normal sinus rhythm Normal ECG When compared with ECG of 29-JUL-2019 12:17, Nonspecific T wave abnormality has replaced inverted T waves in Inferior leads T wave amplitude has decreased in Lateral leads Confirmed by Bruce Steele ([id number]) on 08/25/2020 9:17:55 PM Referred By: REFERRED SELF Confirmed By:Bruce Steele
[2020-08-25] MEDS: ceFAZolin 2000MG 2,000 MG/15 ML SYR IV SCH (21:51)
[2020-08-26] MEDS: ceFAZolin 2000MG 2,000 MG/15 ML SYR IV SCH ×2 (05:51→13:36)
[2020-08-26] MEDS: oxyCODONE HCL IR 5 MG TAB (IMMEDIATE RELEASE) PO PRN ×4 (05:53→21:14)
[2020-08-26] MEDS: D5W AND 1/2NSS 1,000 ML IV SCH ×2 (07:55→21:14)
[2020-08-26] MEDS: ENOXAPARIN INJ 40 MG/0.4 ML SYR SQ SCH (09:05)
[2020-08-26] MEDS: LOSARTAN/HCTZ 50/12.5MG TAB PO SCH (10:14)
[2020-08-26] MEDS ORDERED: COUGH DROP (SUGAR FREE) LOZ 24 LOZ/1 BOX BUCCAL PRN (11:54)
[2020-08-26] MEDS ORDERED: COUGH DROP (SUGAR FREE) LOZ 24 LOZ/1 BOX BUCCAL ONE (11:56)
[2020-08-26] MEDS: HYDROmorphone INJ 0.5 MG/0.5 ML SYR IV PRN ×3 (14:36→23:46)
--- NOTE | 2020-08-26 15:43 | Orthopedic Progress Note ---
Date of Service August 26, 2020 Assessment & Plan (1) Closed fracture of right fibula and tibia: Making uncomplicated progress POD1 from ORIF of tibia. - NWBing, may place on floor for balance for S/P/T - Lovenox DVT ppx x 4 weeks - Pain control - Finish 24h abx periop ppx Dispo: I'd like him to be eval'd by PT/OT. Can possibly go home today if stable from pain management standpoint. RTC for xrays and sutures at 2 weeks. Subjective Evaluated this morning He reported that he had minimal discomfort because the block was still working. Tolerating diet. Wants to go home soon. Review of Systems All systems reviewed & are unremarkable except as noted in HPI & below. Physical Exam RLE: splint is c/d/i. No active motion at toes and minimal LT sensation. Able to perform SLR. Toes are well perfused. Constitutional WD/WN, vitals as above no acute distress and not intoxicated appearing Respiratory normal respiratory effort; no labored breathing Cardiovascular Extremities: normal capillary refill Results & Data Results & Data Laboratory Results . Diagnostic Findings Radiographs show near anatomic reduction and no hardware complications PG Care Time/CCT Total # of Minutes Spent Total Time Spent with Patient: Total time spent is greater than 50% in coordination of care (as documented) at patient's floor/unit and/or counseling patient: Coding Level of Care Code 30146 Post Operative Follow-Up Diagnoses Closed fracture of right fibula and tibia S82.201A; S82.401A Encounter type: initial encounter (1) Closed fracture of right fibula and tibia Encounter type: initial encounter Qualified Code(s): S82.201A - Unspecified fracture of shaft of right tibia, initial encounter for closed fracture; S82.401A - Unspecified fracture of shaft of right fibula, initial encounter for closed fracture
[2020-08-26] MEDS ORDERED: HYDROmorphone INJ 0.5 MG/0.5 ML SYR IV STA (15:58)
--- NOTE | 2020-08-26 18:08 | Orthopedic Progress Note ---
Date of Service August 26, 2020 Assessment & Plan (1) Closed fracture of right fibula and tibia: He has failed to manage pain on oral meds this afternoon after block wore off Will keep overnight to watch progress with pain management. Plan for d/c in the am. Subjective Reports thunderous pain late this afternoon after block wore off. Needs parenteral dilaudid to manage pain. Review of Systems All systems reviewed & are unremarkable except as noted in HPI & below. Physical Exam RLE: toes well perfused. FAROM of digits. SILT. Quad activation intact. Constitutional WD/WN, vitals as above not intoxicated appearing Respiratory normal respiratory effort; no labored breathing Cardiovascular Extremities: normal capillary refill Results & Data Results & Data Laboratory Results . Diagnostic Findings . PG Care Time/CCT Total # of Minutes Spent Total Time Spent with Patient: Total time spent is greater than 50% in coordination of care (as documented) at patient's floor/unit and/or counseling patient: Coding Level of Care Code 40102 Post Operative Follow-Up Diagnoses Closed fracture of right fibula and tibia S82.201A; S82.401A Encounter type: initial encounter (1) Closed fracture of right fibula and tibia Encounter type: initial encounter Qualified Code(s): S82.201A - Unspecified fracture of shaft of right tibia, initial encounter for closed fracture; S82.401A - Unspecified fracture of shaft of right fibula, initial encounter for closed fracture
[2020-08-27] MEDS: oxyCODONE HCL IR 5 MG TAB (IMMEDIATE RELEASE) PO PRN ×3 (01:48→11:16)
--- NOTE | 2020-08-27 08:28 | Discharge Summary ---
Date of Service August 27, 2020 Admission HPI (Per Admitting) 60 yo M sustained contact and twisting knee leg injury. Admission Exam (Per Admitting) Obvious isolated deformity to RLE. Skin intact. DNVI. Constitutional well developed and well nourished; no acute distress and not intoxicated appearing ENMT external ear and nose normal, oropharynx normal Respiratory normal respiratory effort; no respiratory distress Cardiovascular Extremities: normal capillary refill; no edema Skin no rashes, warm and dry Psychiatric A+Ox3, euthymic affect Principal Diagnosis Same as "Discharge Diagnosis" noted below under Discharge Instructions. Discharge Exam RLE: toes well perfused. FAROM of digits. SILT. Quad activation intact. Constitutional well developed and well nourished; no acute distress and not intoxicated appearing ENMT external ear and nose normal, oropharynx normal Respiratory normal respiratory effort; no respiratory distress Cardiovascular Extremities: normal capillary refill; no edema Skin no rashes, warm and dry Psychiatric A+Ox3, euthymic affect Discharge Data Consultations 08/24/20 16:53 ED Decision to Admit Stat 08/24/20 20:04 Consult Case Management - Discharge Planning Routine Procedures Performed Operation Date: 08/25/20 09:35 Actual Procedures p Right Distal Tibia Fracture Open Reduction Internal Fixation(Right) - See Harding MD Ordered Studies 08/24/20 16:45 CT tib/fib RT wo con Stat 08/25/20 11:30 FL ankle RT min 3V RTN Routine FL fluoroscopy <1hr Routine 08/25/20 13:31 US - OR guided needle placemen Routine Hospital Course (1) Closed fracture of right fibula and tibia: Admitted to hospital for pain control and preoperative planning. [facility]. Swelling was well managed and patient was ready for surgery on 08/25/2020. Underwent uncomplicated ORIF of tibia with regional anesthetic block without complication on 08/25/2020. Admitted postoperatively for pain control and strict elevation. On POD1 he was evaluated by PT/OT - found stable for home care. On POD1, his pain was unable to be managed on oral agents. Pain crisis attributed to block wearing off. Continued admission until stable pain control on oral agents on POD2. Encounter type: initial encounter Qualified Code(s): S82.201A - Unspecified fracture of shaft of right tibia, initial encounter for closed fracture; S82.401A - Unspecified fracture of shaft of right fibula, initial encounter for closed fracture PG Care Time/CCT Total # of Minutes Spent Total Time Spent with Patient: Total time spent is greater than 50% in coordination of care (as documented) at patient's floor/unit and/or counseling patient: Discharge Plan Discharge Items Patient Disposition: Home - Self-Care Reason For Visit: RIGHT TIB/FIB FRACTURE Discharge Diagnosis: Right distal tibia and fibular fractures Activity: Per Instructions section Non-emergency contact: Surgeon Call non-emergency contact if: you have any medication questions, your pain is not controlled and your temperature is above 101 Follow-up/Referrals: See Harding MD [Surgeon] - Yifan Reece Jr, DO [Primary Care Provider] - Diet: Regular Addtl Attending Provider Instructions: SPLINT/WOUND CARE: Leave your splint in place and keep the area clean and dry. Your splint will be taken down at your postop clinic visit. Do not remove it yourself. Do not walk on your splint. You should be completely non-weightbearing. Use your crutches as instructed. If the splint becomes wet, dirty, uncomfortable, or loose, please call the Orthopedic Clinic ([phone]) to arrange to be evaluated in the [facility]. Please call the Ortho Clinic if you have any questions or concerns. If you need to be seen after hours, please report to the Emergency Room. PAIN CONTROL: Elevation is your best friend. Elevate the affected extremity above the level of your heart. Swelling is simply fluid. Elevation will allow the fluid to run down hill, reduce swelling, and decrease pain. The affected extremity should be continuously elevated for the first 2-3 days, with the exception of bathroom, hygiene, etc. You may be prone to swelling for several weeks, or until you return to normal function with your foot/ankle. Medications: 1. Oxycodone (OxyIR) 1-2 tablet(s) orally every 4 hours for pain as needed. Use with Tylenol. Begin tapering OxyIR as soon as possible: reduce from 2 to 1 pills per dose, then spread out the doses over greater time intervals, then try to use only for therapy or for comfort while sleeping. Continue to use regular Tylenol until pain subsides. 2. Tylenol (325mg): 3 tablets every 8 hours orally. Regular dosing of Tylenol is an important part of your baseline pain control. Do not taper Tylenol until you have successfully tapered off of regular OxyIR. Do not take more than 3000mg of Tylenol per day. 3. Zofran: 1 tablet orally every 6 hours as needed for nausea related to anesthesia, pain, and narcotic medications. 4. Colace (100mg): take 1-2 tabs twice daily to avoid constipation from OxyIR or other narcotics. OVER THE COUNTER 5. LOVENOX (40 mg): one subcutaneous injection daily for 30 days to prevent blood clots. WHEN TO CALL. If you develop any of the following symptoms, please contact the [facility] [place] [facility] at [phone] or the Emergency room (after hours): Temperature greater than 100.5 taken twice, difficulty breathing, bleeding, fever and chills, increased pain unrelieved by pain meds, uncomfortable cast or splint, or any other concerns. Pending Studies at Discharge: No Stand-Alone Forms: [facility] Pixelated, Smoking Cessation Medications and DC Order Prescriptions: New ondansetron HCl [Zofran] 4 mg tablet 4 mg PO DAILY PRN (Reason: nausea and vomiting) Qty: 10 RF: 0 oxycodone 5 mg tablet 5 - 10 mg PO Q4H PRN (Reason: pain) Qty: 30 RF: 0 enoxaparin [Lovenox] 40 mg/0.4 mL syringe 40 mg subcut DAILY Qty: 4 RF: 2 Continued losartan-hydrochlorothiazide 100-25 mg tablet 1 tab PO QAM RF: 0 naproxen sodium [Aleve] 220 mg capsule 220 mg PO BID PRN (Reason: Pain) RF: 0 Discharge Orders: Discharge Order (Routine); Ordered 08/27/20 Ordered By: See Harding Admission Data Admit Date/Time: 08/24/20 18:09 Attending Provider: Ameya Suárez Admit Provider: Ameya Suárez Primary Care Provider: Yifan Reece Jr Other Providers: Javid Gong
[2020-08-27] MEDS: ENOXAPARIN INJ 40 MG/0.4 ML SYR SQ SCH (08:51)
[2020-08-27] MEDS: LOSARTAN/HCTZ 50/12.5MG TAB PO SCH (08:51)
== END 2020-08-27 11:40 | disposition home or self-care (01) | DRG 494 ==
LOC: ED 13:56 → 3E 18:09
DX: I10 Essential (primary) hypertension; S89.101A Unspecified physeal fracture of lower end of right tibia, initial encounter for closed fracture; W19.XXXA Unspecified fall, initial encounter; S89.301A Unspecified physeal fracture of lower end of right fibula, initial encounter for closed fracture; F17.220 Nicotine dependence, chewing tobacco, uncomplicated